=== PATIENT | male | born 1975 | race Caucasian/White ===

== ENCOUNTER 2017-01-25 17:43 | Emergency (ER) | payer BC ==
[~2017-01-25] VITALS: Ht 177.8 cm; Wt 126.0 kg
[~2017-01-25 17:43] MED LIST: MAAL1000 CHEW
[2017-01-25 17:44] VITALS: BP 159/85; PULSE 79; RESP 18; TEMP 98.7; O2SAT 99
--- NOTE | 2017-01-25 17:50 | PD ---
Physical Exam Date Seen by Provider: Jan 25, 2017 Time Seen by Provider: 17:48 Narrative 41 YOWM C/O EPIGASTIC 730 AM . NO N/V,NO URINARY PROBLEMS. NO CP SOB SOB. PAIN GOES THRU TO THE BACK VSS. PT AWAITING BED PLACEMENT Data Data Last Documented VS Vital Signs Date Time Temp Pulse Resp B/P Pulse Ox O2 Delivery O2 Flow Rate FiO2 01/25/17 17:44 98.7 79 18 159/85 99 MDM Medical Record Reviewed: Yes Supervised Visit with KIRSTIN: Yes Zachery Walker Jan 25, 2017 17:50
--- NOTE | 2017-01-25 18:18 | PD ---
HPI . Abdominal pain Chief Complaint: Abdominal Pain Time Seen by Provider: 18:02 Travel History International Travel<30 days: No Contact w/Intl Traveler<30days: No Traveled to known affect area: No History of Present Illness HPI Patient presents with epigastric pain that radiates through to his back. Onset was 10:30 AM. Onset was gradual. It has been unrelieved by Protonix. He has not noted any exacerbating factors. Pain is a 10 out of 10. He complains of nausea. He denies any other associated symptoms. Specifically, no fever, no diarrhea, no vomiting and no urinary tract symptoms. He reports occasional alcohol use but states this been several days since he had a beer. PFSH Past Medical History Diminished Hearing: No Social History Alcohol Use: Yes (occ) Tobacco Use: No Substance Use: No Allergies-Medications (Allergen,Severity, Reaction): Coded Allergies: Cipro (Verified Allergy, Severe, 01/25/17) DECREASED KIDNEY FUNCTION Reported Meds & Prescriptions Reported Meds & Active Scripts Active Maalox Max (Calcium Carbonate-Simethicone) 1,000-60 Mg Chew 1-2 Tab CHEW QID PRN Reported Pantoprazole (Pantoprazole Sodium) 40 Mg Tab 40 Mg PO DAILY Review of Systems Except as stated in HPI: all other systems reviewed are Neg General / Constitutional: No: Fever, Chills Cardiovascular: No: Chest Pain or Discomfort Respiratory: No: Shortness of Breath Gastrointestinal: Positive: Nausea, Abdominal Pain, No: Vomiting, Diarrhea Genitourinary: No: Urgency, Frequency, Dysuria Physical Exam Narrative GENERAL: This is a healthy-appearing man who is in no acute distress. SKIN: Warm and dry. HEAD: Atraumatic. Normocephalic. EYES: Pupils equal and round. ENT: No nasal bleeding or discharge. Mucous membranes pink and moist. NECK: Trachea midline. Neck is supple. CARDIOVASCULAR: Regular rate and rhythm. Heart sounds are normal. RESPIRATORY: No accessory muscle use. Lungs are clear with full air movement throughout. GASTROINTESTINAL: Abdomen soft. Epigastric tenderness. Nondistended. Positive bowel sounds. MUSCULOSKELETAL: No obvious deformities. No edema. NEUROLOGICAL: Awake and alert. No obvious cranial nerve deficits. Motor grossly within normal limits. Normal speech. PSYCHIATRIC: Appropriate mood and affect; insight and judgment normal. Data Data Last Documented VS Vital Signs Date Time Temp Pulse Resp B/P Pulse Ox O2 Delivery O2 Flow Rate FiO2 01/25/17 20:25 69 16 149/84 96 01/25/17 17:44 98.7 Orders Complete Blood Count With Diff (01/25/17 18:02) Comprehensive Metabolic Panel (01/25/17 18:02) Lipase (01/25/17 18:02) Urinalysis - C+S If Indicated (01/25/17 18:02) Iv Access Insert/Monitor (01/25/17 18:02) Ecg Monitoring (01/25/17 18:02) Oximetry (01/25/17 18:02) Sodium Chloride 0.9% Flush (Ns Flush) (01/25/17 18:15) Electrocardiogram (01/25/17 18:02) Ct Abd/Pel W Iv Contrast(Rout) (01/25/17 19:45) Iohexol 350 Inj (Omnipaque 350 Inj) (01/25/17 20:10) Iohexol 350 Inj (Omnipaque 350 Inj) (01/25/17 20:15) Labs Laboratory Tests Test 01/25/17 18:30 White Blood Count 7.2 TH/MM3 Red Blood Count 5.59 MIL/MM3 Hemoglobin 14.7 GM/DL Hematocrit 44.7 % Mean Corpuscular Volume 80.0 FL Mean Corpuscular Hemoglobin 26.4 PG Mean Corpuscular Hemoglobin 33.0 % Concent Red Cell Distribution Width 14.6 % Platelet Count 262 TH/MM3 Mean Platelet Volume 8.6 FL Neutrophils (%) (Auto) 75.5 % Lymphocytes (%) (Auto) 14.8 % Monocytes (%) (Auto) 7.1 % Eosinophils (%) (Auto) 2.4 % Basophils (%) (Auto) 0.2 % Neutrophils # (Auto) 5.5 TH/MM3 Lymphocytes # (Auto) 1.1 TH/MM3 Monocytes # (Auto) 0.5 TH/MM3 Eosinophils # (Auto) 0.2 TH/MM3 Basophils # (Auto) 0.0 TH/MM3 CBC Comment DIFF FINAL Differential Comment Urine Color YELLOW Urine Turbidity CLEAR Urine pH 6.0 Urine Specific Terrell 1.010 Urine Protein NEG mg/dL Urine Glucose (UA) NEG mg/dL Urine Ketones NEG mg/dL Urine Occult Blood NEG Urine Nitrite NEG Urine Bilirubin NEG Urine Urobilinogen LESS THAN 2.0 MG/DL Urine Leukocyte Esterase NEG Urine RBC LESS THAN 1 /hpf Urine WBC LESS THAN 1 /hpf Urine Mucus FEW /lpf Microscopic Urinalysis Comment CULT NOT INDICATED Sodium Level 137 MEQ/L Potassium Level 4.0 MEQ/L Chloride Level 102 MEQ/L Carbon Dioxide Level 27.0 MEQ/L Anion Gap 8 MEQ/L Blood Urea Nitrogen 9 MG/DL Creatinine 0.82 MG/DL Estimat Glomerular Filtration 103 ML/MIN Rate Random Glucose 105 MG/DL Calcium Level 8.7 MG/DL Total Bilirubin 1.5 MG/DL Aspartate Amino Transf 196 U/L (AST/SGOT) Alanine Aminotransferase 220 U/L (ALT/SGPT) Alkaline Phosphatase 148 U/L Total Protein 7.8 GM/DL Albumin 3.8 GM/DL Lipase 132 U/L [facility] Medical Decision Making Medical Screen Exam Complete: Yes Emergency Medical Condition: Yes Interpretation(s) EKG shows a normal sinus rhythm with no ST segment elevation or depression. Differential Diagnosis Differential diagnosis of abdominal pain includes but is not limited to gastritis, pancreatitis, hepatitis, gastroenteritis, gallbladder disease, constipation, urinary retention, UTI, peptic ulcer disease, diverticulitis or appendicitis Narrative Course Patient presents with epigastric pain radiating through to his back. He has epigastric tenderness on abdominal exam. CBC & BMP Diagram 01/25/17 18:30 His LFTs are elevated. Lipase is normal. UA is unremarkable. CT CONCLUSION: 1. No acute findings on abdomen and pelvic CT. No significant change from August 2016 Diagnosis Primary Impression: Epigastric abdominal pain Patient Instructions: Epigastric Pain (ED), General Instructions Med/Other Pt SpecificInfo: Prescription(s) given Scripts Sucralfate (Carafate)1 Gm Tab1 Gm PO QID #120 TAB Ref 0 On empty stomach Prov:Padmaja Bowen MD 01/25/17 Disposition: 01 DISCHARGE HOME Condition: Stable Padmaja Bowen MD Jan 25, 2017 18:18
[2017-01-25] MEDS ORDERED: PANT40TA3 PO (18:26)
[2017-01-25 18:35] VITALS: O2SAT 96
[2017-01-25 19:14] LABS: AUTOMATED NEUTROPHIL # 5.5 TH/MM3 (1.8-7.7); BASOPHIL % 0.2 % (0.0-2.0); EOSINOPHIL # 0.2 TH/MM3 (0-0.4); EOSINOPHIL % 2.4 % (0.0-4.0); HEMATOCRIT 44.7 % (39.0-51.0); HEMO FLAGS DIFF FINAL; LYMPH % 14.8 % (9.0-44.0); LYMPHOCYTE # 1.1 TH/MM3 (1.0-4.8); MEAN CORPUSCULAR HEMOGLOBIN 26.4 PG (27.0-34.0); MONO % 7.1 % (0.0-8.0); NEUT % 75.5 % (16.0-70.0); PLATELET COUNT 262 TH/MM3 (150-450); RED BLOOD COUNT 5.59 MIL/MM3 (4.50-5.90); RED CELL DISTRIBUTION WIDTH 14.6 % (11.6-17.2); WHITE BLOOD COUNT 7.2 TH/MM3 (4.0-11.0)
[2017-01-25 19:25] LABS: BLOOD, URINE NEG (NEG); COMMENT (UR) CULT NOT INDICATED; CULTURE IF INDICATED CULT NOT INDICATED; GLUCOSE,URINE NEG (NEG); KETONE, URINE NEG (NEG); MUCUS URINE FEW /lpf (OCC); NITRITE,URINE NEG (NEG); URINE COLOR YELLOW (YELLW/STRAW)
[2017-01-25 19:40] LABS: ANION GAP 8 MEQ/L (5-15); AST (GOT) 196 U/L (15-37); BLOOD UREA NITROGEN 9 MG/DL (7-18); CHLORIDE 102 MEQ/L (98-107); GLOMERULAR FILTRATION RATE 103 ML/MIN (>89); SODIUM (NA) 137 MEQ/L (136-145)
[2017-01-25 19:43] LABS: ALKALINE PHOSPHATASE 148 U/L (45-117); ALT (GPT) 220 U/L (12-78); TOTAL BILIRUBIN ADULT 1.5 MG/DL (0.2-1.0)
[2017-01-25] MEDS: IOHEXOL 350 MG/ML 10 ML VIAL (for RAD DIAG) IV ONE ×2 (20:10→20:15)
[2017-01-25 20:25] VITALS: BP 149/84; PULSE 69; RESP 16; O2SAT 96
--- NOTE | 2017-01-25 20:34 | RADRPT ---
EXAM DATE/TIME: 01/25/2017 20:01 [place] COMPARISON: CT ABDOMEN & PELVIS W CONTRAST, August 30, 2016, 2:08. INDICATIONS : Diffuse abdominal pain. IV CONTRAST: 93 cc Omnipaque 350 (iohexol) IV ORAL CONTRAST: No oral contrast ingested. RADIATION DOSE: 15.34 CTDIvol (mGy) MEDICAL HISTORY : None SURGICAL HISTORY : None. ENCOUNTER: Initial ACUITY: 1 day PAIN SCALE: 6/10 LOCATION: Bilateral abdomen TECHNIQUE: Volumetric scanning of the abdomen and pelvis was performed. Using automated exposure control and ad justment of the mA and/or kV according to patient size, radiation dose was kept as low as reasonably achievable to obtain optimal diagnostic quality images. FINDINGS: Lung bases are clear. Mild fatty liver. Benign-appearing calcifications in the liver. Spleen, adrenal s, kidneys and pancreas unremarkable. No calcified gallstones or biliary ductal dilatation. There is no free fluid. No bowel obstruction. No adenopathy. The no acute bony abnormalities. CONCLUSION: 1. No acute findings on abdomen and pelvic CT. No significant change from August 2016. Zachery Dick MD on January 25, 2017 at 20:27 Board Certified Radiologist. This report was verified electronically.
[2017-01-25] MEDS ORDERED: CARA1TAB6 PO (20:41)
[2017-01-25] MEDS: SODIUM CHLORIDE 0.9% FLUSH 10 ML FLUSH IV FLUSH PRN (21:19)
[2017-01-25] MEDS: SUCRALFATE 1 GM TAB PO ONE (21:19)
--- NOTE | 2017-01-26 14:15 | EKG ---
Date Performed: 01/25/2017 Time Performed: 18:27:24 PTAGE: 41 years EKG: Sinus rhythm Since previous tracing, no significant change noted NORMAL ECG PREVIOUS TRACING : 08/30/2016 00.49 DOCTOR: Karen Josue Interpretating Date/Time 01/26/2017 14:13:10
== END 2017-01-25 21:26 | disposition home or self-care (01) ==
LOC: NEPD 17:43
DX: R10.13 Epigastric pain (principal); R11.0 Nausea
CPT/HCPCS: 74177; 80053; 81001; 83690; 85025; 93005; 99284; Q9967